=== PATIENT | male | born 1985 ===

== ENCOUNTER 2023-01-09 19:39 | Emergency (ER) | payer OTHER ==
[~2023-01-09] VITALS: Ht 175.3 cm; Wt 95.2 kg
--- NOTE | ~2023-01-09 | EKG ---
[facility] [address] [place], [place] [address] Draft EK completed, results pending confirmation PATIENT NAME: INGE GUIDO Electrocardiogram DATE OF : 83 PHYSICIAN: PRELIMINARY REPORT #: [id number] REPORT IS CONFIDENTIAL AND NOT TO BE RELEASED WITHOUT AUTHORIZATION
[2023-01-09 21:26] VITALS: BP 100/67
== END 2023-01-09 21:26 | disposition home or self-care (01) ==
LOC: ED 19:39
DX: R07.9 Chest pain, unspecified (principal); F19.10 Other psychoactive substance abuse, uncomplicated; I50.9 Heart failure, unspecified
CPT/HCPCS: 36415; 71045; 80053; 83735; 84484; 85025; 93005; 93010; 99285-25; A9270